=== PATIENT | female | born 1985 | race Caucasian/White ===

== ENCOUNTER 2020-09-08 18:09 | Emergency (ER) | payer MEDICARE, OTHER ==
[~2020-09-08] VITALS: Ht 165.1 cm; Wt 68.0 kg
[2020-09-08 18:11] VITALS: BP 111/54
[2020-09-08] MEDS ORDERED: CEPHALEXIN 250MG CAPSULE PO ONE (19:45)
== END 2020-09-08 19:53 | disposition home or self-care (01) ==
LOC: ER 18:09
DX: S40.861A Insect bite (nonvenomous) of right upper arm, initial encounter (principal); L73.9 Follicular disorder, unspecified; W57.XXXA Bitten or stung by nonvenomous insect and other nonvenomous arthropods, initial encounter; Y93.89 Activity, other specified; Y92.89 Other specified places as the place of occurrence of the external cause; Y99.8 Other external cause status
CPT/HCPCS: 99283